=== PATIENT | female | born 1990 | race Caucasian/White ===

== ENCOUNTER 2021-11-30 04:36 | Inpatient (IN) | payer OTHER ==
[~2021-11-30] VITALS: Ht 160 cm; Wt 78.5 kg
[~2021-11-30 04:36] MED LIST: COLACE 100MG C100 MG PO; IBUPROFEN600 MG PO
[2021-11-30 05:19] LABS: HEMOGLOBIN 13.4 gm/dl (12.3-15.3); RED BLOOD COUNT 4.47 M/UL (4.00-5.10); WHITE BLOOD COUNT 13.3 K/UL (4.5-11.0)
[2021-11-30] MEDS ORDERED: DOCUSATE SODIU250 MG PO (06:50)
[2021-11-30] MEDS ORDERED: IBUPROFEN600 MG PO (06:50)
[2021-12-01 06:47] LABS: HEMOGLOBIN 10.8 gm/dl (12.3-15.3)
== END 2021-12-01 13:07 | disposition home or self-care (01) | DRG 807 ==
LOC: GENOP 04:36 → OB 04:59
PROVIDERS: ADMIT Obstetrics & Gynecology
PROC: 10E0XZZ Delivery of Products of Conception, External Approach (ICD-10-PCS; principal; 2021-11-30)
PROC: 10907ZC Drainage of Amniotic Fluid, Therapeutic from Products of Conception, Via Natural or Artificial Opening (ICD-10-PCS; 2021-11-30)
PROC: 3E033VJ Introduction of Other Hormone into Peripheral Vein, Percutaneous Approach (ICD-10-PCS; 2021-11-30)
DX: O80 Encounter for full-term uncomplicated delivery (principal); Z37.0 Single live birth; Z3A.38 38 weeks gestation of pregnancy; Z28.310 Unvaccinated for COVID-19
CPT/HCPCS: 81001; 85014; 85018; 85025; J2405; J2590